=== PATIENT | male | born 1955 | race American Indian/Alaskan Native ===

== ENCOUNTER 2018-01-02 09:59 | Emergency (ER) | payer BC ==
[2018-01-02] MEDS ORDERED: TORADOL IM ONE (11:58)
--- NOTE | 2018-01-02 12:05 | Emergency Department Report ---
ED Back Pain/Injury HPI - General Chief Complaint: Back Pain/Injury Stated Complaint: BACK/ABD PAIN Time Seen by Provider: 01/02/18 11:39 Source: patient Limitations: No Limitations - History of Present Illness Initial Comments: 62-year-old male with no significant past medical and surgical history presents complaining of right lower back and flank pain continually for the past 4 days. Pain is sharp, intermittent, moderate in intensity and patient had several episodes of nausea and vomiting have since resolved. No change with movement or palpation. He denies dysuria, hematuria, diarrhea, hematuria, melena, hematemesis, leg numbness, leg weakness, or fever. PMD: not affiliated - Related Data Previous Rx's Medication Instructions Recorded Last Taken Type Ibuprofen [Motrin] 800 mg PO Q8HR PRN #30 tablet 01/02/18 Unknown Rx traMADol [Ultram 50 MG tab] 50 mg PO Q6HR PRN #20 tablet 01/02/18 Unknown Rx Allergies Allergy/AdvReac Type Severity Reaction Status Date / Time No Known Allergies Allergy Unverified 01/02/18 10:04 ED Review of Systems ROS: Stated complaint: BACK/ABD PAIN Other details as noted in HPI Comment: All other systems reviewed and negative ED Past Medical Hx - Past Medical History Previous Medical History?: No - Surgical History Past Surgical History?: No - Social History Smoking Status: Never Smoker Substance Use Type: None - Medications Home Medications: Home Medications Medication Instructions Recorded Confirmed Last Taken Type Ibuprofen [Motrin] 800 mg PO Q8HR PRN #30 tablet 01/02/18 Unknown Rx traMADol [Ultram 50 MG tab] 50 mg PO Q6HR PRN #20 tablet 01/02/18 Unknown Rx ED Physical Exam - General Limitations: No Limitations - Other Other exam information: General: No limitations, patient is alert in no acute distress Head exam: Atraumatic, normocephalic Eyes exam: Normal appearance ENT: Moist mucous membrane, normal oropharynx Neck exam: Normal inspection, full range of motion, no meningismus nontender Respiratory exam: Clear to auscultation bilateral, no wheezes, rales, crackles Cardiovascular: Normal rate and rhythm, normal heart sounds Abdomen: Soft, nondistended, and nontender, with normal bowel sounds, no rebound, or guarding Extremity: Full range of motion normal inspection no deformity Back: Normal Inspection, full range of motion, no tenderness. No flank or CVA tenderness on exam Neurologic: Alert, oriented x3, cranial nerves intact, no motor or sensory deficit Psychiatric: normal affect, normal mood Skin: Warm, dry, intact ED Course Vital Signs 01/02/18 01/02/18 01/02/18 10:04 11:52 12:12 Temperature 98.3 F Pulse Rate 68 Respiratory 18 15 20 Rate Blood Pressure 149/59 Blood Pressure [Left] O2 Sat by Pulse 97 Oximetry 01/02/18 16:27 Temperature 98.5 F Pulse Rate 61 Respiratory 15 Rate Blood Pressure Blood Pressure 158/77 [Left] O2 Sat by Pulse 97 Oximetry ED Medical Decision Making - Lab Data Result diagrams: 01/02/18 12:15 01/02/18 12:15 Lab Results 01/02/18 01/02/18 01/02/18 Range/Units 12:14 12:15 12:15 WBC 6.3 (4.5-11.0) K/mm3 RBC 4.09 (3.65-5.03) M/mm3 Hgb 13.7 (11.8-15.2) gm/dl Hct 38.8 (35.5-45.6) % MCV 95 H (84-94) fl MCH 34 H (28-32) pg MCHC 35 H (32-34) % RDW 12.6 L (13.2-15.2) % Plt Count 157 (140-440) K/mm3 Lymph % (Auto) 16.7 (13.4-35.0) % [place] % (Auto) 4.8 (0.0-7.3) % Eos % (Auto) 0.4 (0.0-4.3) % Baso % (Auto) 0.5 (0.0-1.8) % Lymph # 1.0 L (1.2-5.4) K/mm3 [place] # 0.3 (0.0-0.8) K/mm3 Eos # 0.0 (0.0-0.4) K/mm3 Baso # 0.0 (0.0-0.1) K/mm3 Seg Neutrophils % 77.6 H (40.0-70.0) % Seg Neutrophils # 4.9 (1.8-7.7) K/mm3 Sodium 138 (137-145) mmol/L Potassium 3.7 (3.6-5.0) mmol/L Chloride 98.6 (98-107) mmol/L Carbon Dioxide 26 (22-30) mmol/L Anion Gap 17 mmol/L BUN 15 (9-20) mg/dL Creatinine 0.8 (0.8-1.5) mg/dL Estimated GFR > 60 ml/min BUN/Creatinine Ratio 19 % Glucose 119 H (75-100) mg/dL Calcium 8.9 (8.4-10.2) mg/dL Urine Color Yellow (Yellow) Urine Turbidity Clear (Clear) Urine pH 6.0 (5.0-7.0) Ur Specific [place] 1.019 (1.003-1.030) Urine Protein <15 mg/dl (Negative) mg/dL Urine Glucose (UA) Neg (Negative) mg/dL Urine Ketones Tr (Negative) mg/dL Urine Blood Sm (Negative) Urine Nitrite Neg (Negative) Urine Bilirubin Neg (Negative) Urine Urobilinogen < 2.0 (<2.0) mg/dL Ur Leukocyte Esterase Neg (Negative) Urine WBC (Auto) 1.0 (0.0-6.0) /HPF Urine RBC (Auto) 17.0 (0.0-6.0) /HPF Urine Mucus Few /HPF - Radiology Data Radiology results: report reviewed ct a/p IMPRESSION: 2 mm nonobstructing right renal calculus. No right hydronephrosis or evidence of ureteral calculus. Enlarged prostate with mass effect on the urinary bladder base. Central prostate defect may reflect prior TURP procedure Slight prominence of feces in otherwise normal-appearing rectum. No proximal constipation Slight diverticulosis ascending colon and hepatic flexure without CT evidence of diverticulitis - Medical Decision Making It is likely the patient passed a stone on the right side. Of right renal calculus and previous symptoms of nausea vomiting and pain to have resolved. Incidental prostate findings noted in discussed with patient. He denies any history of prostate problems or difficulty urinating currently. He understands that he needs to follow with his PMD and neurology for further evaluation and will be given a copy of his CAT scan reports to take to his doctors for follow up - Differential Diagnosis muscle strain, kidney stone, uti Critical Care Time: No Critical care attestation.: If time is entered above; I have spent that time in minutes in the direct care of this critically ill patient, excluding procedure time. ED Disposition Clinical Impression: Renal colic on right side, Enlarged prostate Disposition: DC- TO HOME OR SELFCARE Is pt being admited?: No Does the pt Need Aspirin: No Condition: Stable Instructions: Kidney Stones (ED), Benign Prostatic Hypertrophy (ED) Additional Instructions: It is very important that you follow up with your primary care doctor and urologist for further evaluation of enlarged prostate and further management of a kidney stone. Please return if symptoms worsen as indicated by your discharge instructions. Prescriptions: Ibuprofen [Motrin] 800 mg PO Q8HR PRN #30 tablet PRN Reason: Pain traMADol [Ultram 50 MG tab] 50 mg PO Q6HR PRN #20 tablet PRN Reason: Pain Referrals: YOSSI UNDERWOOD [Other] - 3-5 Days ASIA CENTENO MD [Staff Physician] - 3-5 Days Time of Disposition: 16:49
[2018-01-02 12:37] LABS: Bilirubin,Urine NEG (Negative); Blood,Urine SM (Negative); Color,Urine Yellow (Yellow); Mucus,Urine FEW /HPF; Protein,Urine <15 mg/dL mg/dL (Negative); Urobilinogen,Urine < 2.0 mg/dL (<2.0)
[2018-01-02 12:38] LABS: Basophils % (Auto) 0.5 % (0.0-1.8); Eosinophils % (Auto) 0.4 % (0.0-4.3); Hematocrit 38.8 % (35.5-45.6); Hemoglobin 13.7 gm/dl (11.8-15.2); Lymphocytes % (Auto) 16.7 % (13.4-35.0); Mean Corpuscular HGB Conc 35 % (32-34); Mean Corpuscular Hemoglobin 34 pg (28-32); Mean Corpuscular Volume 95 fl (84-94); Monocytes # (Auto) 0.3 K/mm3 (0.0-0.8); Monocytes % (Auto) 4.8 % (0.0-7.3); Platelet Count 157 K/mm3 (140-440); Red Blood Count 4.09 M/mm3 (3.65-5.03); Red Cell Distribution Width 12.6 % (13.2-15.2)
[2018-01-02 12:52] LABS: BUN/Creatinine Ratio 19; Blood Urea Nitrogen 15 mg/dL (9-20); Calcium 8.9 mg/dL (8.4-10.2); Hemolysis Index 5
--- NOTE | 2018-01-02 16:02 | Cat Scan Report ---
FINAL REPORT EXAM: CT ABDOMEN PELVIS WO CON HISTORY: r flank pain TECHNIQUE: CT examination of the ABDOMEN without IV contrast CT examination of the PELVIS without IV contrast PRIORS: None. FINDINGS: Minimal linear scar versus atelectasis left lung base. Degenerative change regional skeleton. Slight lumbar curvature with upper right apex. Suggestion of left apex in the visible portion of the thoracic spine. No acute fracture. Normal noncontrast appearance of the liver, gallbladder, adrenals, pancreas, and spleen. Normal caliber abdominal aorta and IVC. 2 mm nonobstructing right renal calculus. No right hydronephrosis. No calculus or distention in the visible portion of the right ureter. Nonspecific, smoothly marginated, low density, simple appearing right renal lesions are statistically most likely cysts. Normal left kidney and visible left ureter. Very small fat containing umbilical hernia. No retroperitoneal adenopathy. No mesenteric mass. Normal-appearing stomach and duodenum. No small bowel distention in the abdomen and pelvis. Enlarged prostate with mass effect on the urinary bladder base. Central prostate defect may reflect prior TURP procedure. Maximum prostate dimension 5.9 cm. No pelvic free fluid. Normal-appearing seminal vesicles. Normal-appearing sigmoid colon. No gross ascites, free air, or colonic distention. Normal-appearing cecum, terminal ileum, and appendix. Slight prominence of feces in otherwise normal-appearing rectum. No evidence of constipation more proximally. Slight diverticulosis ascending colon and hepatic flexure. IMPRESSION: 2 mm nonobstructing right renal calculus. No right hydronephrosis or evidence of ureteral calculus. Enlarged prostate with mass effect on the urinary bladder base. Central prostate defect may reflect prior TURP procedure Slight prominence of feces in otherwise normal-appearing rectum. No proximal constipation Slight diverticulosis ascending colon and hepatic flexure without CT evidence of diverticulitis
[2018-01-02 16:28] VITALS: BP 158/77
== END 2018-01-02 17:06 | disposition home or self-care (01) ==
LOC: ED 09:59
DX: N23 Unspecified renal colic (principal); N40.0 Benign prostatic hyperplasia without lower urinary tract symptoms
CPT/HCPCS: 36415; 74176; 80048; 81001; 85025; 96372; 99284; J1885